=== PATIENT | male | born 1995 | race African-American/Black ===

== ENCOUNTER 2019-08-11 10:01 | Emergency (ER) | payer MEDICAID ==
[~2019-08-11] VITALS: Ht 188 cm; Wt 82.0 kg
[2019-08-11 10:05] VITALS: BP 158/71
--- NOTE | 2019-08-11 10:46 | RAD ---
3 views left hand dated 08/11/2019. No comparison available. CLINICAL INDICATION: Left hand pain. Injury. FINDINGS: 3 views left hand show normal bony alignment. No displaced fracture. There is a subtle curvilinear density near the base of the fifth metacarpal toward the radial side seen on only one view. Mild soft tissue swelling. Osseous structures otherwise intact. IMPRESSION: Possible subtle nondisplaced fracture at the base of fifth metacarpal versus artifact. Correlate with physical exam findings. Electronically signed by: Mark Quinteros MD (08/11/2019 10:43 AM) [id number]
[2019-08-11] MEDS ORDERED: HYDR-3164 PO (11:00)
--- NOTE | 2019-08-11 11:01 | PHYS DOC ---
Past Medical History Past Medical History: Asthma Past Surgical History: Other Additional Past Surgical Histo: L knee Smoking Status: Current Every Day Smoker Alcohol Use: None General Adult EDM: Chief Complaint: HAND PROBLEM HPI: HPI: Patient is a 24-year-old male who is states that he became angry and punched a steel door with his left hand. Since that time he has had pain on the medial aspect of his left hand. Pain is severe when he tries to make a fist. [] Review of Systems: Review of Systems: Constitutional: Denies fever or chills. [] Eyes: Denies change in visual acuity. [] HENT: Denies nasal congestion or sore throat. [] Musculoskeletal: Per HPI. [] Heart Score: Risk Factors: Risk Factors: DM, Current or recent (<one month) smoker, HTN, HLP, family history of CAD, obesity. Risk Scores: Score 0 - 3: 2.5% MACE over next 6 weeks - Discharge Home Score 4 - 6: 20.3% MACE over next 6 weeks - Admit for Clinical Observation Score 7 - 10: 72.7% MACE over next 6 weeks - Early Invasive Strategies Allergies: Allergies: Allergies Coded Allergies Type Severity Reaction Last Updated Verified Penicillins Allergy Intermediate "mom said I'm allergic" 08/11/19 Yes Physical Exam: PE: Constitutional: Well developed, well nourished, n mild distress, non-toxic appearance. [] HENT: Normocephalic, atraumatic, bilateral external ears normal, oropharynx moist, no oral exudates, nose normal. [] Eyes: PERRLA, EOMI, conjunctiva normal, no discharge. [] Neck: Normal range of motion, no tenderness, supple, no stridor. [] Cardiovascular:Heart rate regular rhythm, no murmur [] Lungs & Thorax: Bilateral breath sounds clear to auscultation [] Abdomen: Bowel sounds normal, soft, no tenderness, no masses, no pulsatile masses. [] Skin: Warm, dry, no erythema, no rash. [] Back: No tenderness, no CVA tenderness. [] Extremities: Left hand is swollen and tender to palp from the MCP joint of the fifth finger more proximal to the base of the fifth metacarpal where it is very tender to palp no obvious deformity noted [] Neurologic: Alert and oriented X 3, normal motor function, normal sensory function, no focal deficits noted. [] Psychologic: Affect normal, judgement normal, mood normal. [] Current Patient Data: Vital Signs: Vital Signs Date Time Temp Pulse Resp B/P (MAP) Pulse Ox O2 Delivery O2 Flow Rate FiO2 08/11/19 10:05 98.3 65 16 158/71 (100) 98 Room Air 98.3 EKG: EKG: [] Radiology/Procedures: Radiology/Procedures: []REASON: left hand pain from injury last night - likely boxer's fx PROCEDURE: HAND LEFT 3V 3 views left hand dated 08/11/2019. No comparison available. CLINICAL INDICATION: Left hand pain. Injury. FINDINGS: 3 views left hand show normal bony alignment. No displaced fracture. There is a subtle curvilinear density near the base of the fifth metacarpal toward the radial side seen on only one view. Mild soft tissue swelling. Osseous structures otherwise intact. IMPRESSION: Possible subtle nondisplaced fracture at the base of fifth metacarpal versus artifact. Correlate with physical exam findings. Course & Med Decision Making: Course & Med Decision Making Pertinent Labs and Imaging studies reviewed. (See chart for details) [] Dragon Disclaimer: Dragon Disclaimer: This electronic medical record was generated, in whole or in part, using a voice recognition dictation system. Departure Departure Impression: Primary Impression: Fracture of fifth metacarpal bone of left hand Qualified Codes: S62.347A - Nondisplaced fracture of base of fifth metacarpal bone, left hand, initial encounter for closed fracture Disposition: HOME, SELF-CARE Condition: STABLE Referrals: GLADIS PEACE MD Follow with Dr. Lyons in 1 week to have your hand re-x-rayed Patient Instructions: Cast or Splint Care, Hand Fracture, Fifth Metacarpal Scripts Hydrocodone/Apap 5-325 (NORCO 5-325 TABLET) 1 Each Tablet 1 TAB PO PRN Q6HRS PRN for PAIN, #12 TAB 0 Refills Prov: EDWARD ROCKWELL DO 08/11/19 EDWARD ROCKWELL DO August 11, 2019 11:01
== END 2019-08-11 11:15 | disposition home or self-care (01) ==
LOC: ER 10:01
DX: S62.347A Nondisplaced fracture of base of fifth metacarpal bone, left hand, initial encounter for closed fracture (principal); J45.909 Unspecified asthma, uncomplicated; F17.200 Nicotine dependence, unspecified, uncomplicated; Z88.0 Allergy status to penicillin; W22.8XXA Striking against or struck by other objects, initial encounter; Y93.89 Activity, other specified; Y92.89 Other specified places as the place of occurrence of the external cause; Y99.8 Other external cause status
CPT/HCPCS: 29125; 73130; 99283